=== PATIENT | female | born 1995 | race Caucasian/White ===

== ENCOUNTER → 2018-05-02 | Outpatient (CLI) | payer BC | END | disposition home or self-care (01) | LOC: C.LAB1850 10:50 | PROVIDERS: ATTEND Obstetrics & Gynecology | DX: Z34.02 Encounter for supervision of normal first pregnancy, second trimester (principal) ==

== ENCOUNTER 2022-05-21 21:15 | Observation (INO) ==
[2022-05-21] MEDS ORDERED: XYLOCAINE 1%/SOD BICARB 20 ML VIAL INFIL ONE (23:48)
[2022-05-21] MEDS ORDERED: cefTRIAXone SODIUM 2,000 MG/70 ML BAG IV STA (23:48)
--- NOTE | 2022-05-22 | Emergency Department Note ---
History of Present Illness General Chief complaint: Laceration/Cut (Suture/Dermabond) Stated complaint: LAC ON R HAND Time Seen by Provider: 05/21/22 23:38 History of Present Illness Maximum Pain Intensity: 9 This 26-year-old presents to the ER complaining of right middle finger infection Location: Right middle finger Quality: Swollen and painful Severity: Moderate Duration: Past few days Timing: Started few days ago Context: Patient was concerned and came in Modifying factors: better with rest; worse with palpation Patient states she went to [place] the other day and they drained the finger pad and placed on Keflex and Bactrim. She states the fingers got more swollen and she can no longer bend or fully extend the finger. She states she is healthy with no active medical problems. Tetanus is reported as current. Patient states that base of the fingernail was the main source of the infection. Home Medications Medication Instructions Recorded Confirmed Type norethindrone 1 mg-ethinyl 1 tab PO DAILY #28 tabs 05/21/20 11/22/21 Rx estradiol 35 mcg tablet (Alyacen) escitalopram oxalate 10 mg tablet 10 mg PO DAILY #14 tabs 09/14/21 11/22/21 Rx Allergies Allergy/AdvReac Type Severity Reaction Status Date / Time No Known Drug Allergies Allergy Verified 07/24/20 11:33 Past Med/Surg History Medical History (Updated 05/22/22 @ 03:18 by Reynaldo Castellon MD) Anxiety with depression Surgical History (Updated 05/22/22 @ 03:14 by Reynaldo Castellon MD) H/O wisdom tooth extraction History of D&C Family History Grandmother (Maternal) Diabetes Thyroid disease Grandmother (Paternal) Diabetes Father Hypertension Grandfather (Paternal) Prostate cancer Denies family history of Ovarian cancer Myocardial infarction Breast cancer Colorectal cancer Social History Smoking Status: Never smoker Second Hand Exposure: No; Hx Alcohol Use: Yes Alcohol Intake Frequency: Monthly or Less Hx Substance Use: No Preferred Language: Rwandan Communication Ability: Effective Visual Impairment: No Limitations Hearing Ability: Normal Supervisor Tree Trimming Required: No Beliefs That Will Affect Care: None marital status: Single Current Living Situation: Significant Other current occupational status: employed 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 How many Children do You have: 1 Feels Safe at Home: Yes caffeine: Yes during the past year weight has: remained stable Physical Activity Frequency: 1-2 Times per Week Seatbelt Use: always Sunscreen Use: Yes Assistive Devices: None Review of Systems A total of 10 systems reviewed and were otherwise negative Physical Exam Vital Signs Vital Signs - 24 hr 05/21/22 21:20 05/22/22 00:14 05/22/22 02:00 Temperature 36.9 C Temperature Source Temporal Artery Scan Pulse Rate 93 H Pulse Rate [Finger] 66 70 Respiratory Rate 19 Blood Pressure 142/90 H Blood Pressure [Left Arm] 112/78 Blood Pressure Mean 107 Blood Pressure Mean [Left Arm] 89 Pulse Oximetry 99 100 96 Oxygen Delivery Method Room Air Room Air Room Air Sepsis Recent Fever Within 48 Hours No Sepsis New/Unexplained Change in Mental Status N/A Sepsis Action Taken by Nursing No Action Required VITALS: Vitals are noted on the nurse's note and reviewed by myself. Vital s igns stable. GENERAL: Pleasant female, in no acute distress, nondiaphoretic, well-developed well-nourished. SKIN: The skin was without rashes, erythema, edema, or bruising. There is no tenting of the skin. Capillary reflex less than 2 seconds. HEAD: Normocephalic atraumatic. EARS: External auditory canals clear, EYES: Pupils equal round and reactive to light and accommodation. Conjunctivae without injection, sclerae without icterus. Extraocular movements intact. NOSE: Patent, turbinates without inflammation or discharge. MOUTH: Mucous membranes moist. Pharynx without erythema or exudate. Uvula midline. Airway patent. Tongue does not deviate. NECK: Supple without nuchal rigidity. No lymphadenopathy. No thyromegaly. Cervical spine is nontender. No JVD. HEART: Regular rate and rhythm LUNGS: Clear to auscultation bilaterally without wheezes, rales or rhonchi. No retractions or accessory muscle use. ABDOMEN: Positive bowel sounds x 4. Normal tympanic percussion. Soft, nontender, without masses or organomegaly. Charlton sign negative. No guarding or rebound tenderness. No CVA tenderness MUSCULOSKELETAL: No muscle atrophy, erythema, or edema noted. Right middle finger swollen and cannot fully extend or flex the finger. Concerning for tendon infection. Paronychia is present. NEURO: Patient was alert and oriented to person place and time. Normal sensation to light and sharp touch. No focal neurological deficits. Course Administered Medications Discontinued Medications Ceftriaxone Sodium (Rocephin) 2,000 mg in 70 mls @ 140 mls/hr IV NOW STA Stop: 05/22/22 00:17 Last Infusion: 05/22/22 01:20 Dose: 0 mls/hr Documented By: Admin: 05/22/22 00:21 Dose: 140 mls/hr Documented By: LILLIE Acetaminophen (Ofirmev) 1,000 mg in 100 mls @ 400 mls/hr IV NOW STA Stop: 05/22/22 02:04 Last Infusion: 05/22/22 02:21 Dose: 0 mls/hr Documented By: Admin: 05/22/22 01:54 Dose: 400 mls/hr Documented By: LILLIE Ketorolac Tromethamine (Ketorolac Tromethamine 15 Mg/Ml Vial) 10 mg IV NOW ONE Stop: 05/22/22 01:22 Last Admin: 05/22/22 01:25 Dose: 10 mg Documented By: LILLIE Ketorolac Tromethamine (Ketorolac Tromethamine 15 Mg/Ml Vial) 10 mg IV NOW STA Stop: 05/22/22 01:28 Last Admin: 05/22/22 01:38 Dose: Not Given Documented By: ELIAS Lidocaine HCl (Xylocaine 1%/Sod Bicarb 20 Ml Vial) 20 ml INFIL NOW ONE Stop: 05/21/22 23:49 Last Admin: 05/22/22 01:38 Dose: 20 ml Documented By: SANG Medical Decision Making Medical Records Attestation: I reviewed the patient's medical records. Home Medications Current Medication List: was personally reviewed by me Laboratory Data Attestation: I reviewed the patient's lab results. Result diagrams: 05/22/22 00:06 05/22/22 00:06 Lab Results 05/22/22 05/22/22 05/22/22 Range/Units 00:06 00:06 00:06 WBC 10.90 H (4.8-10.8) K/ul RBC 4.51 (3.93-5.22) M/uL Hgb 13.5 (12.0-16.0) g/dl Hct 40.2 (34.1-44.9) % MCV 89.1 (80.0-100.0) fL MCH 29.9 (25.0-34.0) pg MCHC 33.6 (32.0-36.0) g/dL RDW Std Deviation 38.4 (36.4-46.3) fL RDW Coeff of Elizabeth 11.9 (11.5-14.5) % Plt Count 199 (130-400) K/uL MPV 10.5 (9.4-12.3) fL Immature Gran % (Auto) 0.3 % Neut % (Auto) 77.3 % Lymph % (Auto) 14.8 % Harlan % (Auto) 6.4 % Eos % (Auto) 0.6 % Baso % (Auto) 0.6 % Neut # (Auto) 8.44 H (1.4-6.5) K/uL Lymph # (Auto) 1.61 (1.2-3.4) K/uL Harlan # (Auto) 0.70 (0.24-0.82) K/uL Eos # (Auto) 0.06 (0-0.50) K/uL Baso # (Auto) 0.06 (0-0.2) K/uL Immature Gran # (Auto) 0.03 H (0.00-0.02) K/uL ESR 6 (0-20) mm/hr Sodium 138 (136-145) mmol/L Potassium 4.1 (3.5-5.1) mmol/L Chloride 103 (98-107) mmol/L Carbon Dioxide 25 (21-32) mmol/L Anion Gap 10 (3-11) BUN 14 (6-23) mg/dl Creatinine 0.98 (0.6-1.2) mg/dl Est Cr Clr Drug Dosing 86.1 ml/min Est GFR ( Amer) 93.6 ml/min Est GFR (Non-Af Amer) 80.7 ml/min BUN/Creatinine Ratio 14.3 (10-20) Glucose 96 (70-99(Fasting)) mg/dl Calcium 9.6 (8.5-10.1) mg/dl C-Reactive Protein 2.10 H (0-0.5) mg/dl SARS-CoV-2, RNA, NAAT (NEGATIVE) 05/22/22 Range/Units 01:32 WBC (4.8-10.8) K/ul RBC (3.93-5.22) M/uL Hgb (12.0-16.0) g/dl Hct (34.1-44.9) % MCV (80.0-100.0) fL MCH (25.0-34.0) pg MCHC (32.0-36.0) g/dL RDW Std Deviation (36.4-46.3) fL RDW Coeff of Elizabeth (11.5-14.5) % Plt Count (130-400) K/uL MPV (9.4-12.3) fL Immature Gran % (Auto) % Neut % (Auto) % Lymph % (Auto) % Harlan % (Auto) % Eos % (Auto) % Baso % (Auto) % Neut # (Auto) (1.4-6.5) K/uL Lymph # (Auto) (1.2-3.4) K/uL Harlan # (Auto) (0.24-0.82) K/uL Eos # (Auto) (0-0.50) K/uL Baso # (Auto) (0-0.2) K/uL Immature Gran # (Auto) (0.00-0.02) K/uL ESR (0-20) mm/hr Sodium (136-145) mmol/L Potassium (3.5-5.1) mmol/L Chloride (98-107) mmol/L Carbon Dioxide (21-32) mmol/L Anion Gap (3-11) BUN (6-23) mg/dl Creatinine (0.6-1.2) mg/dl Est Cr Clr Drug Dosing ml/min Est GFR ( Amer) ml/min Est GFR (Non-Af Amer) ml/min BUN/Creatinine Ratio (10-20) Glucose (70-99(Fasting)) mg/dl Calcium (8.5-10.1) mg/dl C-Reactive Protein (0-0.5) mg/dl SARS-CoV-2, RNA, NAAT NEGATIVE (NEGATIVE) Imaging Data Attestation: I personally reviewed and interpreted this imaging study as follows: MDM Narrative Prior records reviewed and summarized as above. Triage Nursing notes reviewed. Additional history obtained from family. The patient's history was concerning for swelling and redness of the skin. Differential diagnosis: Etiologies such as felon, paronychia, tendon infection, cellulitis, abscess, MRSA infection, DVT, necrotizing fasciitis, dermatitis, drug eruption, as well as others were entertained.. Physical examination: As above ER treatment provided: Rocephin Digital Block Indication: Finger infection Verbal consent obtained. Risks and benefits were explained with the usual customary discussion. A time out was taken. The skin was prepped with Betadine. Using sterile technique, 2 mL's of lidocaine was injected into the base of the third digit. Once the patient was anesthetized, 11 blade was used to open up the paronychia present and moderate amount of purulent material was expressed. A wound culture was taken. There was cleansed and dressed by nursing. No complications. The patient tolerated the procedure well. On reassessment the patient felt better. Diagnostics interpreted by me: The labs revealed leukocytosis Wound culture pending Imaging studies: Right middle finger x-ray with moderate amount of swelling with no foreign body fracture or dislocation per my interpretation Consultation: A consultation was placed with the hospitalist. The case was discussed and diagnostics were reviewed. The patient was evaluated in the ER for further treatment. This appears to be right middle finger tenosynovitis who has failed outpatient treatment. Patient was drained as above. Medicine is consulted. She will be evaluated for admission. Patient cannot fully flex or extend the middle finger. By the evaluation outlined above emergent etiologies such as necrotizing fasciitis, DVT, as well as others were deemed relatively unlikely. The pt informed about the findings as listed above. All questions were answered and pleased with the treatment. The chart was completed utilizing [employer] Speech voice recognition software. Grammatical errors, random word insertions, pronoun errors, and incomplete sentences are an occassional consequence of this system due to software limitations, ambient noise, and hardware issues. Any formal questions or concerns about the content, text, or information contained within the body of this dictation should be directly addressed to the physician branch assistant for clarification. Impression & Plan Tenosynovitis of finger Discharge Plan Visit Data Chief Complaint: Laceration/Cut (Suture/Dermabond) Stated Complaint: LAC ON R HAND ED Provider: Bruce [facility] ED Midlevel Provider: Jacquelin Long Discharge Problem: Tenosynovitis of finger Patient Disposition: Admitted As Inpatient Condition: Good Forms Stand Alone Forms: My [facility] Prescriptions Prescriptions: No Action escitalopram oxalate 10 mg tablet 10 mg PO DAILY Qty: 14 0RF Alyacen (28) 1-35 mg-mcg tablet 1 tab PO DAILY Qty: 28 12RF Rx Instructions: Take 1 tablet by mouth daily. Referrals Referrals: Filippo Caceres CRNP [Primary Care Provider] -
[2022-05-22 00:17] LABS: Basophils # (auto) 0.06 K/uL (0-0.2); Basophils % (auto) 0.6 %; Eosinophils # (auto) 0.06 K/uL (0-0.50); Eosinophils % (auto) 0.6 %; Hematocrit (blood only) 40.2 % (34.1-44.9); Hemoglobin 13.5 g/dl (12.0-16.0); Immature Granulocytes # (auto) 0.03 K/uL (0.00-0.02); Immature Granulocytes % (auto) 0.3 %; Lymphocytes # (auto) 1.61 K/uL (1.2-3.4); Lymphocytes % (auto) 14.8 %; Mean Corpuscular Hemoglobin 29.9 pg (25.0-34.0); Mean Corpuscular Hgb Conc 33.6 g/dL (32.0-36.0); Mean Corpuscular Volume 89.1 fL (80.0-100.0); Mean Platelet Volume 10.5 fL (9.4-12.3); Monocytes % (auto) 6.4 %; Neutrophils # (auto) 8.44 K/uL (1.4-6.5); Neutrophils % (auto) 77.3 %; Platelet Count 199 K/uL (130-400); RDW Coefficient of Variation 11.9 % (11.5-14.5); RDW Standard Deviation 38.4 fL (36.4-46.3); Red Blood Count 4.51 M/uL (3.93-5.22)
[2022-05-22 00:36] LABS: BUN Creatinine Ratio 14.3 (10-20); C Reactive Protein 2.1 mg/dl (0-0.5); Calcium 9.6 mg/dl (8.5-10.1); Creatinine Clr Calc Pharmacy 86.1 ml/min; Est GFR (African American) 93.6 ml/min; Est GFR (Non-African American) 80.7 ml/min; Potassium 4.1 mmol/L (3.5-5.1)
[2022-05-22] MEDS ORDERED: KETOROLAC TROMETHAMINE 15 MG/ML VIAL IV ONE (01:21)
[2022-05-22] MEDS ORDERED: KETOROLAC TROMETHAMINE 15 MG/ML VIAL IV STA (01:27)
--- NOTE | 2022-05-22 01:39 | History & Physical Report ---
Date of Service May 22, 2022 Assessment & Plan (1) Infection of finger: Plan: 26-year-old female with past medical history of depression who presents with third digit infection of right hand. Symptoms started 05/20/22 noon as redness, mild swelling, and pain. - eponychia and felon - xr hand per my read: no acute fracture; please f/u official read - SIRS 09/22 (tachycardia. white count does not meet criteria) - received Rocephin in ED. Will expand coverage to anaerobes and Eikenella w/ Vancomycin and Unasyn because patient endorses nail-biting - considered but lower suspicion for tendon sheath infection at this time. will monitor clinically (2) Anxiety with depression: Plan: - updated med list: no longer on Lexapro 10mg daily per patient Plan FEN/GI: regular diet. no IV fluids ppx: Lovenox code: full dispo: med surg History of Present Illness Chief Complaint: finger infection Primary Care Provider: MIKEY Acevedo 26-year-old female with past medical history of depression who presents with right third digit infection. Symptoms started 05/20/22 noon as redness, mild swelling, and pain. She attributes possible infection to frequent nail biting. She denies hx of diabetes, but does note that she goes to the gym often. 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 Patient went to [place] ED around 1AM 05/21/22 because of worsening pain that kept her up that night. There, an incision was made at pulp of fingertip and wound cultures were sent. She was rx'd PO Keflex 500mg PO QID and Bactrim BID x 10 days. The pain returned and worsened after the numbing medication wore off. She presents to [facility] ED this evening. She has not had fever/ chills. Denies streaking. Current pain level is 5/10. She has numbness of R hand and some tingling at digits 2, 4, and 5. Other ROS negative. She denies having hx of blood clots. Patient is right-handed. In the ED, an incision was made at the nailbed and purulent material was drained. Wound cultures sent. She was given 2g Rocephin. Allergies Allergy/AdvReac Type Severity Reaction Status Date / Time No Known Drug Allergies Allergy Verified 07/24/20 11:33 Past Med/Surg History Medical History (Updated 05/22/22 @ 03:18 by Reynaldo Castellon MD) Anxiety with depression Surgical History (Updated 05/22/22 @ 03:14 by Reynaldo Castellon MD) H/O wisdom tooth extraction History of D&C Family History Grandmother (Maternal) Diabetes Thyroid disease Grandmother (Paternal) Diabetes Father Hypertension Grandfather (Paternal) Prostate cancer Denies family history of Ovarian cancer Myocardial infarction Breast cancer Colorectal cancer Social History Smoking Status: Never smoker Second Hand Exposure: No; Do You Dip or Chew Tobacco: No; Hx Alcohol Use: Yes Alcohol type: beer Alcohol Intake Frequency: Monthly or Less Hx Substance Use: No Preferred Language: Swiss Communication Ability: Effective Visual Impairment: No Limitations Hearing Ability: Normal Roll Grinder Operator Required: No Beliefs That Will Affect Care: None marital status: Single Current Living Situation: Alone current occupational status: employed 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 NAD. Cooperative. HEENT: Atraumatic, normocephalic. EOMI Pulm: CTAB. -wheezes, -rales, -rhonchi. No respiratory distress. Cardiac: RRR, -mrg. Radial pulses intact and symmetrical. Msk: Moving all extremities. ROM of R 3rd finger slightly limited by pain Neuro: No gross deficits. Integ: Mild edema and erythema of distal R 3rd finger; no ttp of area of finger proximal to DIP. Appearance hard to assess because of recent incision and drainages. Results & Data Results & Data ([facility]) Vital Signs (Past 12 Hours) Vital Signs Temp Pulse Pulse Resp BP Pulse Ox O2 Del Method 05/22/22 00:14 66 100 Room Air 05/21/22 21:20 36.9 C 93 H 19 142/90 H 99 Room Air Laboratory Results CBC 05/22/22 Range/Units 00:06 WBC 10.90 H (4.8-10.8) K/ul RBC 4.51 (3.93-5.22) M/uL Hgb 13.5 (12.0-16.0) g/dl Hct 40.2 (34.1-44.9) % Plt Count 199 (130-400) K/uL Neut # (Auto) 8.44 H (1.4-6.5) K/uL Lymph # (Auto) 1.61 (1.2-3.4) K/uL Berrien # (Auto) 0.70 (0.24-0.82) K/uL Eos # (Auto) 0.06 (0-0.50) K/uL Baso # (Auto) 0.06 (0-0.2) K/uL Comprehensive Metabolic Panel 05/22/22 Range/Units 00:06 Sodium 138 (136-145) mmol/L Potassium 4.1 (3.5-5.1) mmol/L Chloride 103 (98-107) mmol/L Carbon Dioxide 25 (21-32) mmol/L BUN 14 (6-23) mg/dl Creatinine 0.98 (0.6-1.2) mg/dl Glucose 96 (70-99(Fasting)) mg/dl Calcium 9.6 (8.5-10.1) mg/dl Intake and Output 05/21/22 05/21/22 05/22/22 14:59 22:59 06:59 Intake Total 170 / 170 Balance 170 / 170 Intake: IV 170 / 170 Acetaminophen 1,000 mg In 100 100 / 100 ml @ 400 mls/hr IV NOW STA Rx#: [id number] SODIUM 2,000 mg In 70 / 70 70 ml @ 140 mls/hr IV NOW STA Rx#:[id number] Other: Weight 72.2 kg Weight Measurement Method Chair Scale Patient Weight 05/22/22 06:59 Weight 72.2 kg Code Status & VTE Plan Code Status full VTE Prophylaxis Plan VTE Prophylaxis will be ordered: Yes Supervising Physician Co-Signing Physician Notes Attending addendum: I have physically seen this patient, have supervised the medical residents activities, and agree with the H&P unless as otherwise noted. Assessment and Plan: Third finger infection- Failure of outpatient treatment Was I indeed cleared for the emergency department, and then I indeed at this emergency department. Placed on vancomycin IV and Unasyn IV to cover human bite bacteria, as patient has been biting her fingernails She is advised to no longer bite her fingernails Follow closely for signs of a sending lymphangitis, which he has not had yet, or signs of more than just a local infection. Anxiety with depression- Continue Lexapro Remaining orders and notations as noted Resident Activity Tracking Resident Involvement: Resident Care Provided Care Provided: Adult Hospital Medicine
[2022-05-22] MEDS ORDERED: ACETAMINOPHEN 1,000 MG/100 ML VIAL IV STA (01:50)
[2022-05-22] MEDS ORDERED: VANCOMYCIN CONSULT ACTIVE PRN (04:59)
[2022-05-22] MEDS ORDERED: VANCOMYCIN HCL 1,500 MG in SODIUM CHLORIDE 0.9% 500 ML IV STA (05:09)
[2022-05-22] MEDS: AMPICILLIN/SULBACTAM SOD 3,000 MG in 0.9 % SODIUM CHLORIDE 100 ML IV SCH ×4 (06:10→23:49)
[2022-05-22 06:36] LABS: Basophils # (auto) 0.06 K/uL (0-0.2); Basophils % (auto) 0.8 %; Eosinophils % (auto) 1.3 %; Hematocrit (blood only) 39.3 % (34.1-44.9); Hemoglobin 13.4 g/dl (12.0-16.0); Immature Granulocytes # (auto) 0.02 K/uL (0.00-0.02); Immature Granulocytes % (auto) 0.3 %; Lymphocytes # (auto) 1.71 K/uL (1.2-3.4); Lymphocytes % (auto) 22.3 %; Mean Corpuscular Hemoglobin 30.2 pg (25.0-34.0); Mean Corpuscular Hgb Conc 34.1 g/dL (32.0-36.0); Mean Corpuscular Volume 88.7 fL (80.0-100.0); Mean Platelet Volume 10.5 fL (9.4-12.3); Monocytes # (auto) 0.63 K/uL (0.24-0.82); Monocytes % (auto) 8.2 %; Neutrophils # (auto) 5.14 K/uL (1.4-6.5); Neutrophils % (auto) 67.1 %; Platelet Count 194 K/uL (130-400); RDW Coefficient of Variation 11.9 % (11.5-14.5); RDW Standard Deviation 38.6 fL (36.4-46.3); Red Blood Count 4.43 M/uL (3.93-5.22); White Blood Count 7.66 K/ul (4.8-10.8)
[2022-05-22 06:54] LABS: BUN Creatinine Ratio 11.8 (10-20); Calcium 9.3 mg/dl (8.5-10.1); Creatinine Clr Calc Pharmacy 82.7 ml/min; Est GFR (African American) 89.2 ml/min; Est GFR (Non-African American) 76.9 ml/min; Potassium 3.9 mmol/L (3.5-5.1)
[2022-05-22] MEDS: ACETAMINOPHEN 325 MG TAB PO PRN ×4 (07:08→19:32)
--- NOTE | 2022-05-22 07:21 | Hospitalist Progress Note ---
Date of Service May 22, 2022 Assessment & Plan (1) Infection of finger: Plan: Scarlet is a 26 year old female with history of anxiety/depression and diet/exercise controlled DM who is admitted for an infection of her finger after presenting with a erythematous, edematous, and painful right 3rd digit. Finger Infection/Cellulitis: - Received I/D x2 and Rocephin prior to admission - Symptomatically improving in AM, continues to have TTP to MTP Joint on R Hand - Increased throbbing/discomfort in PM, provided Toradol 10 mg PO Q6h PRN - Vitals, CBC, and CMP wnl - SIRS Negative - CRP elevated 2.10 - MRSA Nares Negative - Cultures pending - Continue Vancomycin for empiric MRSA coverage and Unasyn for empiric anaerobic coverage while inpatient - Will consider additional imaging and orthopedics consult if not clinically improving on abx - Consider discharge on PO Augmentin and PO Doxycycline when indicated Anxiety w/ Depression - Patient not presently receiving antianxiety/antidepressant - Was previously on Lexapro 10 mg daily per inpatient (2) Anxiety with depression: Plan FEN/GI: regular diet. no IV fluids DVT Ppx: Lovenox Code Status: full Dispo: med/surg Admission and Anticipated Discharge Date Admission Date: May 22, 2022 Supervising Physician Co-Signing Physician Notes Patient seen and examined, chart reviewed, case discussed with Manuel Baez DO and I agree with the assessment and plan as above except as otherwise noted Labs and images reviewed Scarlet is seen at the bedside. She reports her finger continues to have severe pain to palpation, reports it felt all right this morning but has since become more painful and throbs. Not noticed any drainage, is trying to keep it delicately wrapped due to pain. She denies fever, chills, sweats, lightheadedness, dizziness, night sweats, nausea, vomiting, diarrhea. On physical exam lungs are clear to auscultation bilaterally, heart rate is regular. Right third digit with swelling along the length. Pain is worsened with passive or active flexion/extension at both the PIP and DIP, no pain with flexion at the MCP. 2 approximate 1 cm incisions for drainage on the volar aspect of the di stal third digit, without purulent drainage. Prominent area of swelling at the cuticle on the dorsal aspect of the third digit with minimal scant drainage on palpation. Right third digit cellulitis, tenosynovitis No fevers, systemic symptoms Improved overnight, some worsening with use midday. On exam with prominent areas of swelling and scant drainage Pain on passive and active flexion at the PIP and DIP We will continue to observe tomorrow. If improving on IV antibiotics, will convert and follow. If patient is not clinically progressing will obtain MRI to follow for worsening potential tenosynovitis, and consult Ortho Subjective Scarlet is a 26 year old female with history of anxiety/depression and diet/exercise controlled DM who is admitted for an infection of her finger after presenting with a erythematous, edematous, and painful right 3rd digit. Patient was evaluated 05/21 in [place] ED d/t pain in the digit, I/D was performed to the distal finger and wound cultures were sent. She was discharged on PO Keflex 500 mg and Bactrim BID. She returned to [facility] ED evening of 05/21 for worsening discomfort, numbness, and tingling in the R hand. In the ED, I/D was performed a second time and purulent material was drained from the finger. Cultures were sent. Pt. received 2g Rocephin in ED. Today 05/22/22: - Primarily came in because dressing was adhesed to the finger and she was in a significant amount of pain - Doesn't feel like infection was well drained prior to presenting to [facility] - patient experienced some relief following I/D in [facility] ED - Finger is feeling better than when she arrived, 5/10 pain at present, notes edema of digit is unchanged - No fevers or chills - Patient has not noticed drainage from the digit - No chest pain, shortness of breath, or bowel/bladder change - No adverse reaction to abx Review of Systems Review of Systems: See HPI. Physical Exam Physical Exam: Gen: NAD, alert, interactive Resp:Non-labored, no wheezing/rhonchi/rales, CTAB CV:RRR, normal S1/S2, no M/R/G Abd: Soft, non-distended, no TTP, normoactive bowels, no masses Skin: No rashes lesions Digits: 2 incisions present on volar aspect of R 3rd digit 2/2 drainage, edema and erythema of R 3rd digit (most significant distally), TTP to MTP, ROM at PIP and DIP limited by pain, no TTP into hand or adjacent digits Results & Data Results & Data ([facility]) Vital Signs (Past 12 Hours) Vital Signs Temp Pulse Pulse Resp BP BP Pulse Ox 05/22/22 06:28 05/22/22 05:50 36.5 C 78 18 115/64 99 05/22/22 06:18 36.5 C 78 18 115/64 99 05/22/22 05:42 99 H 16 116/76 100 05/22/22 04:00 67 14 105/64 99 05/22/22 02:00 70 112/78 96 05/22/22 00:14 66 100 05/21/22 21:20 36.9 C 93 H 19 142/90 H 99 O2 Del Method 05/22/22 06:28 Room Air 05/22/22 05:50 Room Air 05/22/22 06:18 Room Air 05/22/22 05:42 Room Air 05/22/22 04:00 Room Air 05/22/22 02:00 Room Air 05/22/22 00:14 Room Air 05/21/22 21:20 Room Air Resident Activity Tracking Resident Involvement: Resident Care Provided Care Provided: Adult Hospital Medicine
--- NOTE | 2022-05-22 08:09 | XRay Report ---
XR finger(s) RT min 2V CLINICAL HISTORY: Right middle finger infection. COMPARISON STUDY: None. FINDINGS: 3 views the right middle finger show no fracture or dislocation. There is mild soft tissue swelling. No soft tissue gas or radiopaque foreign bodies identified. No evidence for ostial myelitis . IMPRESSION: Mild soft tissue swelling within the right middle finger. No underlying bony abnormality . ACT 112: Negative or not required by law. Electronically signed by: Giuseppe Gan M.D. 05/22/2022 8:08 AM
--- NOTE | 2022-05-22 10:45 | Pharmacy Report ---
Pharmacy PK ABX Note - Date of Service May 22, 2022 - Assessment and Plan Assessment * 26 year old F receiving Unasyn and vancomycin for treatment of R finger infection (frequent nail biting). * Pertinent microbiologic data includes: finger and blood cultures pending Plan Vancomycin * Loading dose: 1500 mg IV x 1 * Maintenance dose: 1000 mg IV every 12 hours * Regimen is predicted to achieve target AUC/NEELIMA of 400-600 mg/L.hr * Random level ordered for: 05/24/22 Pharmacy will continue to follow and will adjust dose/frequency as necessary. Thank you. Pharmacy has transitioned to AUC monitoring for vancomycin. AUC/NEELIMA is the preferred PK/PD target and is associated with decreased risk of nephrotoxicity compared to traditional trough targets.
--- NOTE | 2022-05-22 14:13 | Billing Data ---
Date of Service May 22, 2022 Coding Level of Care Code 60735 Subseq Obs Care Lvl 2
[2022-05-22] MEDS: KETOROLAC TROMETHAMINE 10 MG TABLET PO PRN ×2 (14:52→21:08)
[2022-05-22] MEDS: VANCOMYCIN HCL 1,000 MG in SODIUM CHLORIDE 0.9% 250 ML IV SCH (20:16)
[2022-05-22] MEDS ORDERED: OPTIRAY 300 100mL IV ONE (20:57)
--- NOTE | 2022-05-23 01:45 | Billing Data ---
Date of Service May 23, 2022 Coding Level of Care Code INT OBSERVATION CARE 70M LVL 3
[2022-05-23] MEDS: KETOROLAC TROMETHAMINE 10 MG TABLET PO PRN ×2 (02:59→09:51)
[2022-05-23] MEDS: ACETAMINOPHEN 325 MG TAB PO PRN ×2 (02:59→09:50)
[2022-05-23] MEDS: AMPICILLIN/SULBACTAM SOD 3,000 MG in 0.9 % SODIUM CHLORIDE 100 ML IV SCH ×3 (05:50→17:34)
--- NOTE | 2022-05-23 07:24 | CT Scan Report ---
CT hand RT w con HISTORY: Right third digit pain. Finger Pain TECHNIQUE: Multiaxial CT images of the right hand were performed following the intravenous administra tion of 93 cc of Optiray 300 and reformatted in the sagittal and coronal plane. COMPARISON STUDY: Right middle finger radiograph 05/22/2022. FINDINGS: Mild soft tissue swelling within the right middle finger most pronounced distally. There is a small curvilinear fluid along the dorsal aspect of the third distal phalanx near the nailbed. This could represent a small abscess. No radiopaque foreign bodies. No destructive changes within the bon e to suggest an osteomyelitis. No fracture or dislocation. IMPRESSION: Soft tissue swelling within the right third digit most pronounced distally with a small curvilinear d orsal fluid collection in the region of the nail bed. This could represent a small abscess. No eviden ce for osteomyelitis. ACT 112: Negative or not required by law. Electronically signed by: Giuseppe Gan M.D. 05/23/2022 7:21 AM
[2022-05-23] MEDS: VANCOMYCIN HCL 1,000 MG in SODIUM CHLORIDE 0.9% 250 ML IV SCH (08:11)
--- NOTE | 2022-05-23 08:36 | Hospitalist Progress Note ---
Date of Service May 23, 2022 Assessment & Plan (1) Infection of finger: Plan: Scarlet is a 26 year old female with history of anxiety/depression and diet/exercise controlled DM who is admitted for an infection of her finger after presenting with a erythematous, edematous, and painful right 3rd digit. Finger Infection/Cellulitis: - Received I/D x2 and Rocephin prior to admission - Ongoing TTP to MTP Joint on R Hand - Paronychial Abscess drainage (I&D) performed on R 3rd digit, drainage of purulent material achieved surrounding nail bed - Lightly dressed finger - recommended light gauze dressings with regular changes - Vitals, CBC, and CMP stable - SIRS Negative - CRP elevated 2.10 (1.36 downtrending) - MRSA Nares Negative --- Wound Cultures pending --- Blood Cultures NGTD @ 24h - CT Hand w/o evidence of osteomyelitis - Orthopedics Consultation: * Consistent with a paronychia of the right middle finger, poss cellulitis tracking up the finger, raising concern for infectious flexor tenosynovitis. That cellulitis has improved on IV antibiotics, currently receiving Unasyn and vancomycin; tailor antibiotic regimen based on culture results. No evidence of infectious flexor tenosynovitis on exam. No evidence of osteomyelitis on x-ray and CT scan. She has undergone drainage of the paronychia x2, with no obvious remaining fluid. CRP was slightly elevated, but downtrending. Sed rate and white count were normal. This should resolve on current antibiotic treatment with dressing changes. - Continue Vancomycin for empiric MRSA coverage and Unasyn for empiric anaerobic coverage while inpatient ---Consider discharge on PO Augmentin and PO Doxycycline when indicated Anxiety w/ Depression - Patient not presently receiving antianxiety/antidepressant - Was previously on Lexapro 10 mg daily per inpatient (2) Anxiety with depression: Plan FEN/GI: regular diet. no IV fluids DVT Ppx: Lovenox Code Status: full Dispo: med/surg Admission and Anticipated Discharge Date Admission Date: May 22, 2022 Supervising Physician Co-Signing Physician Notes Patient seen and examined, chart reviewed, case discussed with Manuel Baez, and I agree with the assessment and plan as above except as otherwise noted Labs and images reviewed Nondistressed. Continues to have severe pain and swelling through the third digit, equivocal today. Fluctuant area of abscess at the nailbed, I&D performed see procedure note same day. Breathing is nonlabored, pulse is regular. Patien t does have pain on flexion/extension, somewhat improved shooting down to the MCP today. No fever/chills/sweats. Incision and drainage performed, follow for clinical progression and if progressing convert to likely Augmentin/Doxy given concern for prior Bactrim failure and need for anaerobic coverage discharge. Addendum: On evening reevaluation patient doing extremely well. Finger is much less swollen, pain is greatly reduced, and patient overall feels well. Is able to bend and extend the finger at all joints, although with limited flexion. Erythema reduced. Progression of patient feeling well, okay for discharge. Antibiotics converted to Augmentin/Doxy for anaerobic and MRSA coverage would continue for a full 7 days. Discussed patient to soak 4 times a day, and to have follow-up with PCP for reassessment within the next week. She is agreeable to this. See discharge summary. Dean Novak is a 26 year old female with history of anxiety/depression and diet/exercise controlled DM who is admitted for an infection of her finger after presenting with a erythematous, edematous, and painful right 3rd digit. Patient was evaluated 05/21 in [place] ED d/t pain in the digit, I/D was performed to the distal finger and wound cultures were sent. She was discharged on PO Keflex 500 mg and Bactrim BID. She returned to [facility] ED evening of 05/21 for worsening discomfort, numbness, and tingling in the R hand. In the ED, I/D was performed a second time and purulent material was drained from the finger. Cultures were sent. Pt. received 2g Rocephin in ED. Today 05/23/22: - Endorses worsening pain (6/10), swelling, and erythema of the digit - Denies fevers or chills - No drainage from digit - No AE from Abx - No chest pain, shortness of breath, abdominal pain, or headaches Patient is agreeable to drainage of purulent material from finger. Discussed procedure with patient. 05/22/22: - Primarily came in because dressing was adhesed to the finger and she was in a significant amount of pain - Doesn't feel like infection was well drained prior to presenting to [facility] - patient experienced some relief following I/D in [facility] ED - Finger is feeling better than when she arrived, 5/10 pain at present, notes edema of digit is unchanged - No fevers or chills - Patient has not noticed drainage from the digit - No chest pain, shortness of breath, or bowel/bladder change - No adverse reaction to abx Review of Systems Review of Systems: See HPI. Physical Exam Physical Exam: Gen: NAD, alert, interactive Resp:Non-labored, no wheezing/rhonchi/rales, CTAB CV:RRR, normal S1/S2, no M/R/G Abd: Soft, non-distended, no TTP, normoactive bowels, no masses Skin: No rashes lesions Digits: Interval development of fluctuant area of erythema/purulence at the base of patient's nail bed on the R 3rd digit, 2 incisions present on volar aspect of R 3rd digit 2/2 drainage, worsened edema and erythema of R 3rd digit (most significant distally), TTP to MTP, ROM at PIP and DIP limited by pain, no TTP into hand or adjacent digits Results & Data Results & Data ([facility]) Vital Signs (Past 12 Hours) Vital Signs Temp Pulse Resp BP Pulse Ox O2 Del Method 05/23/22 08:19 36.4 C L 81 16 90/55 L 99 Room Air 05/22/22 23:00 36.7 C 73 16 113/76 98 Room Air Diagnostic Findings CT Finger 05/22/22 IMPRESSION: Soft tissue swelling within the right third digit most pronounced distally with a small curvilinear dorsal fluid collection in the region of the nail bed. This could represent a small abscess. No evidence for osteomyelitis. Resident Activity Tracking Resident Involvement: Resident Care Provided Care Provided: Adult Hospital Medicine
[2022-05-23 08:42] LABS: Hematocrit (blood only) 35.7 % (34.1-44.9); Mean Corpuscular Hemoglobin 29.9 pg (25.0-34.0); Mean Corpuscular Hgb Conc 33.6 g/dL (32.0-36.0); Mean Corpuscular Volume 88.8 fL (80.0-100.0); Mean Platelet Volume 10.9 fL (9.4-12.3); Platelet Count 184 K/uL (130-400); RDW Coefficient of Variation 11.9 % (11.5-14.5); RDW Standard Deviation 38.6 fL (36.4-46.3); Red Blood Count 4.02 M/uL (3.93-5.22); White Blood Count 6.86 K/ul (4.8-10.8)
[2022-05-23 09:20] LABS: BUN Creatinine Ratio 14.6 (10-20); C Reactive Protein 1.36 mg/dl (0-0.5); Calcium 8.7 mg/dl (8.5-10.1); Creatinine Clr Calc Pharmacy 102.9 ml/min; Est GFR (African American) 116.1 ml/min; Est GFR (Non-African American) 100.2 ml/min; Potassium 4.3 mmol/L (3.5-5.1)
[2022-05-23] MEDS ORDERED: BENZOCAINE 20% AER SPR 82.5 GM CAN EXT STA ×2 (10:07→10:21)
[2022-05-23] MEDS ORDERED: XYLOCAINE 1%/SOD BICARB 20 ML VIAL INFIL ONE (10:09)
[2022-05-23] MEDS ORDERED: BENZOCAINE/TETRACAIN/BUTAM 50 APPLN/5 GM CAN EXT ONE (11:00)
--- NOTE | 2022-05-23 11:48 | Orthopedic Consultation ---
Date of Consultation May 23, 2022 Assessment & Plan (1) Paronychia of right middle finger: Her presentation is very consistent with a paronychia of the right middle finger. It sounds like she had some cellulitis tracking up the finger, raising concern for infectious flexor tenosynovitis. That cellulitis has improved on IV antibiotics, currently receiving Unasyn and vancomycin; tailor antibiotic regimen based on culture results. No evidence of infectious flexor tenosynovitis on exam. No evidence of osteomyelitis on x-ray and CT scan. She has undergone drainage of the paronychia x2, with no obvious remaining fluid. CRP was slightly elevated, but downtrending. Sed rate and white count were no rmal. This should resolve on current antibiotic treatment with dressing changes. No urgent orthopedic surgical intervention is required. No specific orthopedic follow-up is required, assuming this resolves without further incident. Counseled patient to avoid nailbiting. Orthopedics will sign off for now. Please call with questions. History of Present Illness Reason for Consultation: Right middle finger infection Attending Physician: Rohan George MD History of Present Illness Ms. Colunga is a 26-year-old female with a history of nailbiting habits who has had infection right middle finger over the past 3 days. She notes that this started on May 20 with pain and swelling mostly in the dorsal aspect of the finger around the area of the nailbed. She went to her local emergency room that night in [place], and underwent an incision and attempted drainage on the volar aspect of the finger early in the morning on 05/21. She reports that no purulent material was expressed from the finger through 2 separate volar incisions. She then presented to [facility] ER later that same evening with persistent and worsening pain and swelling in the finger. She was diagnosed with a paronychia infection, and underwent incision and drainage in the ER with some improvement in her symptoms. She was admitted for antibiotic treatment. Unfortunately, the fluid collection in the eponychial fold reaccumulated, and she is currently undergoing repeat incision and drainage of the paronychia by the primary medical team. Per the patient and primary medical team, the cellulitis of the finger is improving. Orthopedics was consulted to evaluate for an infectious flexor tenosynovitis. Allergies Allergy/AdvReac Type Severity Reaction Status Date / Time No Known Drug Allergies Allergy Verified 11/05/20 11:33 Patient History Medical History (Updated 05/23/22 @ 11:44 by Shahram Epps M.D.) Anxiety with depression Surgical History (Updated 05/22/22 @ 03:14 by Reynaldo Castellon MD) H/O wisdom tooth extraction History of D&C Family History Grandmother (Maternal) Diabetes Thyroid disease Grandmother (Paternal) Diabetes Father Hypertension Grandfather (Paternal) Prostate cancer Denies family history of Ovarian cancer Myocardial infarction Breast cancer Colorectal cancer Social History Smoking Status: Never smoker Second Hand Exposure: No; Do You Dip or Chew Tobacco: No; Hx Alcohol Use: Yes Alcohol type: beer Alcohol Intake Frequency: Monthly or Less Hx Substance Use: No Preferred Language: Nicaraguan Communication Ability: Effective Visual Impairment: No Limitations Hearing Ability: Normal Plant Associate Required: No Beliefs That Will Affect Care: None marital status: Single Current Living Situation: Alone current occupational status: employed 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 This dorsal abscess was just lanced by the medical team, and no obvious remaining abscesses noted. No significant swelling or erythema tracking up the finger. No significant tenderness to palpation along the flexor tendon sheath more proximally in the finger or in the palm. No fusiform swelling. No significant pain with passive extension. She does have some difficulty with flexion due to the pain on the dorsal aspect of the distal fingertip. Results & Data ([facility]) Vital Signs (Past 12 Hours) Vital Signs Temp Pulse Resp BP Pulse Ox O2 Del Method 05/23/22 08:19 36.4 C L 81 16 90/55 L 99 Room Air Laboratory Results WBC-6.86 ESR-6 CRP-2.10-->1.36 Gram stain from paronychia fluid obtained in the emergency department shows gram-positive cocci and gram-positive bacilli. Cultures are pending. Diagnostic Findings X-ray and CT scan of the right middle finger are largely unremarkable. There is some soft tissue swelling in the dorsal aspect of the distal phalanx consistent with a paronychia, but no underlying bony erosions. No obvious fluid collection along the flexor tendon sheath.
--- NOTE | 2022-05-23 13:57 | Procedure Note ---
Procedure Note Date of Service May 23, 2022 Note 05/23/2022 Procedure: Incision and drainage Supervising physician: Rohan George MD. Attending physician was present in the room for all portions of the procedure, procedure was performed by Manuel Baez DO under direct supervision. Total time approximately 20 minutes Indication: Paronychia with abscess Preprocedure exam: Right third distal phalange E with area of pus and fluctuance overlying the nail matrix and medial nailbed with surrounding erythema. Digit diffusely swollen throughout prison between the MCP/PCP. Sensation is soft touch is intact on the dorsal pad. 2 lateral incisions from prior drainage of the dorsal pad are appreciated without drainage. Procedure: Finger was cleaned with sterile saline prior to procedure. Finger was dried with sterile gauze, then Betadine 3X was applied and in outward circular motion. Digital nerve block was avoided due to overlying erythema/swelling. Local Cetacaine was applied and finger was placed on a sterile drape. A 11 blade scalpel was applied parallel to the nail and a 3-4 mm incision was made along the nailbed medially immediately exposing a large volume of purulent material. Purulent material was drained, and skin was cleaned. No complications, patient tolerated the procedure well. Patient remains on antibiotics and prior cultures of drainage are pending. Procedure exam: Swelling remains unchanged, area of fluctuance completely drained with reduced swelling. Complications: None. Blood loss: None Coding
--- NOTE | 2022-05-23 14:02 | Billing Data ---
Date of Service May 23, 2022 Coding Level of Care Code 74038 Subseq Obs Care Lvl 2
--- NOTE | 2022-05-23 16:58 | Discharge Summary ---
Date of Service May 23, 2022 Admission HPI Per Admitting Provider 26-year-old female with past medical history of depression who presents with right third digit infection. Symptoms started 05/20/22 noon as redness, mild swelling, and pain. She attributes possible infection to frequent nail biting. She denies hx of diabetes, but does note that she goes to the gym often. 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 Patient went to [place] ED around 1AM 05/21/22 because of worsening pain that kept her up that night. There, an incision was made at pulp of fingertip and wound cultures were sent. She was rx'd PO Keflex 500mg PO QID and Bactrim BID x 10 days. The pain returned and worsened after the numbing medication wore off. She presents to [facility] ED this evening. She has not had fever/ chills. Denies streaking. Current pain level is 5/10. She has numbness of R hand and some tingling at digits 2, 4, and 5. Other ROS negative. She denies having hx of blood clots. Patient is right-handed. In the ED, an incision was made at the nailbed and purulent material was drained. Wound cultures sent. She was given 2g Rocephin. Admission Exam Per Admitting Provider General: Grossly A&O. NAD. Cooperative. HEENT: Atraumatic, normocephalic. EOMI Pulm: CTAB. -wheezes, -rales, -rhonchi. No respiratory distress. Cardiac: RRR, -mrg. Radial pulses intact and symmetrical. Msk: Moving all extremities. ROM of R 3rd finger slightly limited by pain Neuro: No gross deficits. Integ: Mild edema and erythema of distal R 3rd finger; no ttp of area of finger proximal to DIP. Appearance hard to assess because of recent incision and drain ages. Principal Diagnosis Paronychia Infection/Abscess Discharge Exam Gen: NAD, alert, interactive Resp:Non-labored, no wheezing/rhonchi/rales, CTAB CV:RRR, normal S1/S2, no M/R/G Abd: Soft, non-distended, no TTP, normoactive bowels, no masses Skin: No rashes lesions 0830 Digits: Interval development of fluctuant area of erythema/purulence at the base of patient's nail bed on the R 3rd digit, 2 incisions present on volar aspect of R 3rd digit 2/2 drainage, worsened edema and erythema of R 3rd digit (most significant distally), TTP to MTP, ROM at PIP and DIP limited by pain, no TTP into hand or adjacent digits 1600 Digits: S/p I&D 1000, Interval improvement/resolution of purulence, improvement of erythema and edema of the digit, TTP to MTP, improved ROM at PIP and DIP, continued limitation 2/2 pain, no TTP into hand or adjacent digits Discharge Data Allergies Allergy/AdvReac Type Severity Reaction Status Date / Time No Known Drug Allergies Allergy Verified 07/24/20 11:33 Consultations 05/22/22 01:27 ED Decision to Admit Stat 05/22/22 18:40 Consult Orthopedic Surgery Routine * Her presentation is very consistent with a paronychia of the right middle finger. It sounds like she had some cellulitis tracking up the finger, raising concern for infectious flexor tenosynovitis. That cellulitis has improved on IV antibiotics, currently receiving Unasyn and vancomycin; tailor antibiotic regimen based on culture results. No evidence of infectious flexor tenosynovitis on exam. No evidence of osteomyelitis on x-ray and CT scan. She has undergone drainage of the paronychia x2, with no obvious remaining fluid. CRP was slightly elevated, but downtrending. Sed rate and white count were normal. This should resolve on current antibiotic treatment with dressing changes. No urgent orthopedic surgical intervention is required. No specific orthopedic follow-up is required, assuming this resolves without further incident. Counseled patient to avoid nailbiting. Orthopedics will sign off for now. Please call with questions. Procedures Performed Incision and Drainage 05/21/22 Emergency Department Paronychial Abscess Drainage 05/23/22 Family Medicine Inpatient Service Procedure: Incision and drainage Supervising physician: Rohan George MD.Attending physician was present in the room for all portions of the procedure, procedure was performed by Manuel Baez DO under direct supervision.Total time approximately 20 minutes Indication: Paronychia with abscess Preprocedure exam: Right third distal phalange E with area of pus and fluctuance overlying the nail matrix and medial nailbed with surrounding erythema. Digit diffusely swollen throughout fci between the MCP/PCP. Sensation is soft touch is intact on the dorsal pad. 2 lateral incisions from prior drainage of the dorsal pad are appreciated without drainage. Procedure: Finger was cleaned with sterile saline prior to procedure. Finger was dried with sterile gauze, then Betadine 3X was applied and in outward circular motion. Digital nerve block was avoided due to overlying erythema/swelling. Local Cetacaine was applied and finger was placed on a sterile drape. A 11 blade scalpel was applied parallel to the nail and a 3-4 mm incision was made along the nailbed medially immediately exposing a large volume of purulent material. Purulent material was drained, and skin was cleaned. No complications, patient tolerated the procedure well. Patient remains on antibi otics and prior cultures of drainage are pending. Procedure exam: Swelling remains unchanged, area of fluctuance completely drained with reduced swelling. Complications: None. Blood loss: None Ordered Studies 05/21/22: XR Finger IMPRESSION: Mild soft tissue swelling within the right middle finger. No underlying bony abnormality. 05/22/22 18:37 CT hand RT w con Routine IMPRESSION: Soft tissue swelling within the right third digit most pronounced distally with a small curvilinear dorsal fluid collection in the region of the nail bed. This could represent a small abscess. No evidence for osteomyelitis. Hospital Course (1) Infection of finger: Scarlet is a 26 year old female with history of anxiety/depression and diet/exercise controlled DM who was admitted for an infection of her finger after presenting with a erythematous, edematous, and painful right 3rd digit. She was found to have an infection of the paronychia surrounding the nail bed on the right third digit. Finger Infection: - Received I&D x2 and Rocephin prior to admission in ED - Received I&D while inpatient 05/23/22 with improvement of symptoms - Improved but ongoing TTP to MTP Joint on R Hand - Paronychial Abscess drainage (I&D) performed on R 3rd digit, drainage of purulent material achieved surrounding nail bed - Lightly dressed finger - recommended light gauze dressings with regular changes - Vitals, CBC, and CMP stable - SIRS Negative - CRP elevated 2.10 (1.36 downtrending) - MRSA Nares Negative --- Wound Cultures pending --- Blood Cultures NGTD @ 24h - CT Hand w/o evidence of osteomyelitis - Orthopedics Consultation: * Consistent with a paronychia of the right middle finger, poss cellulitis tracking up the finger, raising concern for infectious flexor tenosynovitis. That cellulitis has improved on IV antibiotics, currently receiving Unasyn and vancomycin; tailor antibiotic regimen based on culture results. No evidence of infectious flexor tenosynovitis on exam. No evidence of osteomyelitis on x-ray and CT scan. She has undergone drainage of the paronychia x2, with no obvious remaining fluid. CRP was slightly elevated, but downtrending. Sed rate and white count were normal. This should resolve on current antibiotic treatment with dressing changes. 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 no IV fluids DVT Ppx: Lovenox while inpatient Code Status: full Dispo: discharge to home Total Time Total Time Spent Total Time Spent (In Minutes): >30 min Discharge Plan Discharge Items Patient Disposition: Home - Self-Care Reason For Visit: FINGER INFECTION Discharge Diagnosis: Paronychia Infection/Abscess w/o Tendon or Bone Involvement Condition on Discharge: Good Activity: Resume your previous activity Non-emergency contact: Primary Care Provider Call non-emergency contact if: you have any medication questions, your symptoms worsen, your pain is not controlled and you have a fever Follow-up/Referrals: Filippo Caceres CRNP [Primary Care Provider] - Diet: Regular Addtl Attending Provider Instructions: You were admitted to the hospital for an infection in the third finger of your right hand. You were ultimately found to have an abscess (a collection of pus) at the base of your nail. You were treated with antibiotics and drainage of the abscess on your finger. With antibiotics and drainage, the redness and swelling of your finger improved. Please keep your finger clean, protected, and dry as it continues to heal. As discussed, you may perform occasional salt water rinses/soaks for your finger which may aid in wound healing. As was encouraged while inpatient, please continue to refrain from biting your nails, as this will increase your risk of developing similar infections in the future. A discharge summary will be sent to your primary care provider to ensure continuity of care. Please bring this discharge summary with you to your next office appointment so that your provider can review it at that time. Follow-up appointments: - Make a follow-up appointment with your PCP within the next week. It is very important that you follow up with them shortly after discharge from the hospital. We have requested a follow-up appointment with your primary care physician within one week of discharge. Please call their office if you do not hear from them. Medications: - Your medication list has been reviewed and reconciled upon discharge to ensure accuracy and continuity of care. An updated list of all your medications is included with your hospital discharge paperwork. Please review this list closely, and make note of any changes. - We sent a new medication called Augmentin. Please take Augmentin 875 mg twice daily by mouth for 7 days. - We sent a new medication called Doxycycline. Please take Doxycycline 100 mg twice daily by mouth for 7 days. Recommend adequate sun protection while taking Doxycycline as it can increased the risk of skin irritation from sun exposure, sun avoidance is best during course of antibiotics. - You were given one dose of Augmentin and Doxycycline in the hospital, please be sure to supervisor picking crew the remainder of you medications at your preferred pharmacy by tomorrow morning (05/24/22). - You may continue to use Tylenol over the counter for pain management - If you have any issues filling these prescriptions, please call [phone] and ask to leave a message for Dr. Baez. - Take your medications as instructed; do not skip a dose of your medicines. Make sure all of your doctors know every medicine you are taking (including [id number] medicines, vitamins, and supplements). - Call your primary care provider before taking any new medicines (including over- the-counter medicines, vitamins, and supplements), because some of these may interact with your current medications, or may make your symptoms worse. - Tell your primary care provider if you cannot afford your medications. Contact your Primary Care Provider if you experience: - Mild worsening finger pain, redness, or swelling - Difficulty following your treatment plan or taking medications Call 911 or go to the emergency department if you experience: - Severe worsening of finger pain or swelling - Fever associated with ongoing finger pain - Sudden, severe abdominal pain or nausea/vomiting - Severe chest pain, or chest pain that radiates (moves) to your jaw or arm - Sudden, severe shortness of breath or difficulty breathing It was a pleasure to be a part of your care, Dr. Manuel Baez Pending Studies at Discharge: Yes Studies:: Wound Culture Blood Culture Stand-Alone Forms: My [facility], Smoking Cessation Medications and DC Order Prescriptions: New amoxicillin-pot clavulanate 875-125 mg tablet 1 tab PO BID 7 Days Qty: 14 0RF doxycycline hyclate 100 mg tablet 100 mg PO BID 7 Days Qty: 14 0RF Discharge Orders: Discharge Order (Routine); Ordered 05/23/22 Ordered By: Manuel Alvarenga/Other Patient Handouts: ED Paronychia of the Finger or Toe Admission Data Admit Date/Time: 05/22/22 05:11 Attending Provider: Rohan George Admit Provider: Reynaldo Castellon Primary Care Provider: Filippo Caceres Other Providers: Vini Hendrickson ; Shahram Epps Other Interventions: Discharge Summary Assessment (RN) Last Done: 05/23/22 17:26 Supervising Physician Co-Signing Physician Notes Patient seen and examined, chart reviewed, case discussed with Manuel Baez, and I agree with the assessment and plan as above except as otherwise noted Labs and images reviewed See day progress note for additional documentation. Addendum: On evening reevaluation patient doing extremely well. Finger is much less swollen, pain is greatly reduced, and patient overall feels well. Is able to bend and extend the finger at all joints, although with limited flexion. Erythema reduced. Progression of patient feeling well, okay for discharge. Antibiotics converted to Augmentin/Doxy for anaerobic and MRSA coverage would continue for a full 7 days. Discussed patient to soak 4 times a day, and to have follow-up with PCP for reassessment within the next week. She is agreeable to this. Resident Activity Tracking Resident Involvement: Resident Care Provided Care Provided: Adult Hospital Medicine
--- NOTE | 2022-05-23 17:00 | Billing Data ---
Date of Service May 23, 2022 Coding Level of Care Code D/C DAY MANAGEMENT >30 MINS Comment Patient reassessed and discharged rather than continued in hospital stay. Disregard prior
[2022-05-23] MEDS ORDERED: AMOXICILLIN/CLAVULANATE 875 MG TAB PO ONE (17:33)
[2022-05-23] MEDS ORDERED: DOXYCYCLINE HYCLATE 100 MG CAP PO ONE (17:35)
[2022-05-24] MEDS ORDERED: VANCOMYCIN LEVEL ONE (07:30)
== END 2022-05-23 18:42 | disposition home or self-care (01) ==
LOC: 3N 21:15 → ED 21:15 → SUATTDRO 05-22 05:11 → 3N 05-22 05:54